=== PATIENT | male | born 1955 | race Caucasian/White ===

== ENCOUNTER 2019-08-04 09:01 | Inpatient (IN) ==
[~2019-08-04 09:01] MED LIST: M.V.I.-12 10 ML, FOLIC ACID 1 MG, MAGNESIUM SULFATE 1 GM, THIAMINE 100 MG in NS 1,000 ML IV ONE
[2019-08-04] MEDS ORDERED: ZOFRAN IV PRN (10:37)
[2019-08-04] MEDS ORDERED: ATIVAN IV PRN (10:50)
[2019-08-04] MEDS ORDERED: APRESOLINE IV PRN (10:51)
--- NOTE | 2019-08-04 10:54 | EKG Report ---
Test Performed on : 08/04/2019 10:45:18 AM Test Reason : Epistaxis,HTN Blood Pressure : / mmHG Vent. Rate : 069 BPM Atrial Rate : 069 BPM P-R Int : 142 ms QRS Dur : 088 ms QT Int : 426 ms P-R-T Axes : 040 017 027 degrees QTc Int : 456 ms Normal sinus rhythm. Nonspecific T wave abnormality Abnormal ECG No previous ECGs available Confirmed by Jame BLANKENSHIP, Irineo Raymond ([id number]) on 08/06/2019 10:25:41 PM
[2019-08-04 11:03] LABS: BASO# 0.03 X1000 (0.0-0.2); BASO% 0.2 % (0.0-0.8); EOS# 0.01 X1000 (0.0-0.7); EOS% 0.1 % (0.0-10.0); HEMATOCRIT 35.5 % (42.0-52.0); HEMOGLOBIN 12.6 g/dL (14.0-18.0); IMM GRAN# 0.04 X1000 (0.0-0.04); IMM GRAN% 0.3 % (0.0-0.5); LYMPH# 1.84 X1000 (1.2-3.4); LYMPH% 13.5 % (20.5-51.1); MCH 32.7 PG (27-31); MCHC 35.5 g/dL (33-37); MCV 92.2 FL (81-99); MONO# 0.97 X1000 (0.11-0.59); MONO% 7.1 % (1.7-9.3); MPV 9.5 FL (7.4-10.4); NEUT# 10.74 X1000 (1.4-6.5); NEUT% 78.8 % (42.2-75.2); PLT 225 X1000 (130-400); RBC 3.85 XMIL (4.7-6.1); RDW 12.8 % (11.5-14.5); WBC 13.63 X1000 (4.8-10.8)
[2019-08-04 11:36] LABS: ESTIMATED GFR > 60
[2019-08-04 11:37] LABS: AGAP 15; BUN 38 mg/dL (8-22); CHLORIDE 87 mmol/L (98-107); COSMO 263; CREATININE 1.1 mg/dL (0.7-1.2); GLUCOSE 111 mg/dL (70-104); POTASSIUM 3.6 mmol/L (3.5-5.1); SODIUM 126 mmol/L (136-145); TCO2 24 mmol/L (25-35)
[2019-08-04] MEDS: NICODERM PATCH TD SCH (11:41)
[2019-08-04] MEDS: TENORMIN PO SCH (14:40)
[2019-08-04] MEDS: NORVASC PO SCH ×2 (14:40→21:25)
--- NOTE | 2019-08-04 16:23 | HISTORY AND PHYSICAL ---
CHIEF COMPLAINT: Of persistent epistaxis and hypertension after being seen at [facility], was a direct admit from their facility to here for further evaluation and treatment. HISTORY OF PRESENTING ILLNESS: This is a 64-year-old male who initially presented to [facility] ER yesterday with epistaxis, had a left rhino packing placed to the left naris. Blood pressure was elevated according to the ER doctor there and they gave some medicine to bring his blood pressure down and discharged him. He was awaiting a ride out in the front lobby and his left naris began to drip blood again so he came into the emergency room again at [facility] and at that time it was felt that he needed further intervention that their facility could not provide so he was transferred here to [facility] [place] for ENT consultation for further evaluation and treatment. PAST MEDICAL HISTORY: Hypertension. PAST SURGICAL HISTORY: Bilateral carpal tunnel repair and a cyst removed from his hand. FAMILY HISTORY: Of cancer. SOCIAL HISTORY: Currently lives alone, smokes a pack of cigarettes a day and has done so for 50+ years. Drinks a half a case of beer and has done so for approximately 5 years and denies any illicit drug use. ALLERGIES AND HOME MEDICATIONS: Are currently being obtained as he just arrived to our facility. LABORATORY DATA: We will obtain a CBC, BMP and a EKG now. REVIEW OF SYSTEMS: He denies any fever, chills, blurred vision, dizziness. He has had left naris nose bleed is currently packed with a rhino packing. Denies any chest pain, coughing, shortness of breath, abdominal pain, constipation, diarrhea, burning or hurting with urination. PHYSICAL EXAMINATION: On arrival his blood pressure is 181/86. HEENT: Normocephalic, atraumatic. He does have packing to his left naris and is still dripping some bright red blood. Pupils are equal, round, reactive to light, accommodation. Extraocular movements are intact. NECK: Normal inspection, normal range of motion. LUNGS: Clear to auscultation bilaterally with equal lung expansion and chest wall movement. HEART: Regular rate and rhythm. No murmurs, rubs, or gallops. ABDOMEN: Soft, nontender, nondistended. Bowel sounds are present x4 quadrants. MUSCULOSKELETAL: He has 5/5 strength x4 extremities. NEUROLOGICAL: The cranial nerves 2-12 are grossly intact. ASSESSMENT: 1. Persistent epistaxis. 2. Hypertension. 3. Tobacco abuse. 4. Ethanol abuse. OUR PLAN: He is being admitted to the medical unit, placed on telemetry, healthy heart diet. We will consult ENT. We will check a CBC, BMP and a EKG now. I am going to place him on nicotine patch 21 mg transdermally for his tobacco abuse. I am also going to place him on Ativan 1 mg IV q.4 hours p.r.n. for any signs and symptoms of alcohol withdrawal and will monitor him for DTs. Will update and confirm home medications restart those as appropriate. I am going to place some hydralazine 10 mg IV q.4 hours p.r.n. for a systolic greater than 190, diastolic greater than 100. Further orders after seen by attending and by consultants intern. Dictated by BALAJI Mohr for Barney Mata MD cc: BALAJI Mohr MD
--- NOTE | 2019-08-04 17:09 | EKG Report ---
Test Performed on : 08/04/2019 4:57:46 PM Test Reason : possible afib Blood Pressure : / mmHG Vent. Rate : 072 BPM Atrial Rate : 072 BPM P-R Int : 164 ms QRS Dur : 082 ms QT Int : 378 ms P-R-T Axes : 059 041 062 degrees QTc Int : 413 ms Normal sinus rhythm. T wave abnormality, consider inferolateral ischemia Abnormal ECG When compared with ECG of 04-AUG-2019 10:45, (Unconfirmed) No significant change was found Patient unable to lean back. Confirmed by Jame BLANKENSHIP, Irnieo Raymond ([id number]) on 08/06/2019 10:25:58 PM
[2019-08-04] MEDS ORDERED: SILVER NITRATE APPLICATOR TOP ONE (18:19)
[2019-08-04] MEDS ORDERED: AFRIN NASAL SPRAY NAS ONE (18:19)
[2019-08-04] MEDS: TYLENOL PO PRN (19:02)
[2019-08-04] MEDS ORDERED: THIAMINE 100 MG in NS 50 ML IV ONE (19:50)
[2019-08-04] MEDS ORDERED: PERCOCET-5 PO PRN (20:18)
[2019-08-04 20:31] LABS: INR 0.92; PROTIME 12.5 Seconds (11.0-16.0)
[2019-08-04 20:32] LABS: PTT 28.7 Seconds (22.3-41.8)
[2019-08-04] MEDS ORDERED: M.V.I.-12 10 ML, FOLIC ACID 1 MG, MAGNESIUM SULFATE 1 GM, THIAMINE 100 MG in NS 1,000 ML IV ONE (21:00)
[2019-08-04] MEDS: LIBRIUM PO SCH (21:25)
[2019-08-04] MEDS: KEFLEX PO SCH (21:25)
--- NOTE | 2019-08-04 21:26 | CONSULTATION ---
DATE OF CONSULTATION: 08/04/2019 CHIEF COMPLAINT: Epistaxis. HISTORY OF PRESENT ILLNESS: This very pleasant 64-year-old gentleman is seen in consultation for ongoing epistaxis. It started about 3 days prior to admission. He presented to his local medical center, where his nose was packed, and for reasons that are not clear to me, it was then unpacked today, and he had return of brisk bleeding from the left side of the nose. He presented to the emergency department here at [place], and the left side of the nose was packed. He has still had intermittent oozing from the left side, some posteriorly in the oropharynx and also a bit out of the right side. Of note, the patient unfortunately is a long-term smoker with a significant history of alcohol abuse, and he has been taking 325 mg of aspirin 3 times a day for a number of years. He has no prior history of epistaxis. PAST MEDICAL HISTORY: Significant for hypertension. PAST SURGICAL HISTORY: Significant for bilateral carpal tunnel. FAMILY HISTORY: Noncontributory. SOCIAL HISTORY: As mentioned above, lives alone. Significant smoking history. Significant alcohol history of about a half a case of beer per day. No illicit drug use. ALLERGIES: None. MEDICATIONS: None. LABORATORY DATA: Significant for hyponatremia and some leukocytosis. Otherwise, relatively noncontributory. REVIEW OF SYSTEMS: CONSTITUTIONAL: Negative for fevers, chills, chest pain. GI: Gastrointestinal distress, cough, abdominal pain, diarrhea. : Painful urination. PHYSICAL EXAMINATION: GENERAL: He is a disheveled but pleasant, chronically unwell-appearing 64-year-old gentleman in no apparent distress. HEENT: The left side of the nose is packed with a Rapid Rhino. There is no active bleeding noted. The right side of the nose has clotted blood. There is no active bleeding noted. The oropharynx shows some dried clotted blood. No active bleeding. Oral cavity shows scattered dentition in poor repair. NECK: He has excellent range of motion of his neck. There is no obvious mass or adenopathy, though he has a significant martini. NEUROLOGIC: Cranial nerves are grossly intact. LUNGS: Clear. HEART: Appears regular to palpation. ASSESSMENT: 1. Epistaxis. 2. Hypertension. 3. Alcoholism. 4. Tobacco abuse. PLAN: This very pleasant 64-year-old gentleman is in for ongoing epistaxis. It seems to have responded to nasal packing and also to some Afrin use by the nursing staff. I elected to place some Surgicel soaked in Afrin in the left side of his nose around his packing, and that seems to have made a big difference for him. I did discuss with him the possibility of bilateral nasal packings to try to prevent any further issues with epistaxis, but at this point he is very resistant to this idea, as he is quite uncomfortable with just his left side packed. At this point, unfortunately, there is really no great option to help treat him. I suspect that if he were to have further bleeding that became more significant, we would need to consider DDAVP or possibly a platelet transfusion. I would like to see him back in the office, and I will arrange for followup next week for packing removal once he has had a chance for his platelet function to return to normal. I did recommend, and I wrote an order, to place him on Keflex empirically while his nose is packed to prevent any further issues with sinusitis. He understands the importance of followup. Certainly he is at high risk for head/neck malignancy that might be causing his underlying bleeding. I will evaluate him in the clinic next week, no sooner than Wednesday or , when his platelet function will hopefully be more normal. He should go home. He should be discharged with a prescription for Keflex for at least a week, and he should be treated intermittently with Afrin spray as needed to help reduce any mild dripping that he may have.
[2019-08-05] MEDS: LIBRIUM PO SCH ×4 (04:58→20:48)
[2019-08-05] MEDS: NS 500 ML IV SCH ×2 (05:07→06:13)
[2019-08-05 07:02] LABS: BASO# 0.03 X1000 (0.0-0.2); BASO% 0.2 % (0.0-0.8); EOS# 0.03 X1000 (0.0-0.7); EOS% 0.2 % (0.0-10.0); HEMATOCRIT 34.2 % (42.0-52.0); HEMOGLOBIN 11.8 g/dL (14.0-18.0); IMM GRAN# 0.03 X1000 (0.0-0.04); IMM GRAN% 0.2 % (0.0-0.5); LYMPH# 1.56 X1000 (1.2-3.4); LYMPH% 11.5 % (20.5-51.1); MCH 31.7 PG (27-31); MCHC 34.5 g/dL (33-37); MCV 91.9 FL (81-99); MONO# 1.06 X1000 (0.11-0.59); MONO% 7.8 % (1.7-9.3); MPV 9.7 FL (7.4-10.4); NEUT# 10.84 X1000 (1.4-6.5); NEUT% 80.1 % (42.2-75.2); PLT 243 X1000 (130-400); RBC 3.72 XMIL (4.7-6.1); RDW 12.8 % (11.5-14.5); WBC 13.55 X1000 (4.8-10.8)
[2019-08-05 07:24] LABS: ESTIMATED GFR > 60
[2019-08-05 07:44] LABS: AGAP 12; BUN 20 mg/dL (8-22); CALCIUM 8.4 mg/dL (8.8-10.2); CHLORIDE 89 mmol/L (98-107); COSMO 261; CREATININE 0.9 mg/dL (0.7-1.2); GLUCOSE 114 mg/dL (70-104); POTASSIUM 3.2 mmol/L (3.5-5.1); SODIUM 128 mmol/L (136-145); TCO2 27 mmol/L (25-35)
[2019-08-05] MEDS: TENORMIN PO SCH (08:14)
[2019-08-05] MEDS: KEFLEX PO SCH ×2 (08:14→20:48)
[2019-08-05] MEDS: NICODERM PATCH TD SCH (08:14)
[2019-08-05] MEDS: TYLENOL PO PRN (08:15)
[2019-08-05] MEDS: NORVASC PO SCH ×2 (08:15→20:48)
[2019-08-05] MEDS ORDERED: SAMSCA PO ONE (08:38)
[2019-08-05] MEDS ORDERED: NS 500 ML IV ONE (09:09)
[2019-08-05 09:37] LABS: INR 0.91; PROTIME 12.4 Seconds (11.0-16.0)
[2019-08-05] MEDS ORDERED: APRESOLINE IV PRN (10:08)
--- NOTE | 2019-08-05 13:58 | PROGRESS NOTE ---
DATE: 08/05/2019 SUBJECTIVE: Patient reports still persisting with epistaxis. In the note from Dr. Kong from ENT mentions that the patient was offered bilateral nasal packing but the patient refused. OBJECTIVE: Vital Signs: Temperature 97.5 degrees, heart rate 72, respiratory rate 18, blood pressure 163/93, O2 saturation 97% on room air. General Examination: This is a chronically ill- appearing, 64-year-old, male lying in bed, in no acute distress, unkempt. HEENT: Patient has a packing in the left naris. No dripping any blood. There is also some coagulated blood in the right nostril. Neck: No JVD noted. No carotid bruits. No lymphadenopathy. Cardiovascular: S1, S2 heard. No murmurs, gallops, or rubs. Regular rate and rhythm. Respiratory: Clear bilaterally to auscultation. No work of breathing or using accessory muscles. Abdomen: Soft, nontender to palpation. Bowel sounds present. No organomegaly. Extremities: No clubbing, cyanosis, or edema. Peripheral pulses present in both legs. Neurological: Patient alert and oriented x3. Some hand tremor noted. LABORATORY DATA: Reviewed. ASSESSMENT AND PLAN: 1. Persistent epistaxis. At this point, I think the fact that he is taking aspirin is making him more prone to develop epistaxis. In that regard, we are going to transfuse [address] Kong from ENT has offered packing of both nostrils but he refused. We will see if this transfusion helps to stop the bleeding, otherwise we will need to call ENT again. 2. Hypertension. Blood pressure has been elevated. We have started this patient on atenolol which is his home medication and also on amlodipine, but blood pressure is still elevated. We will continue also with hydralazine p.r.n. 3. Ethanol abuse. Patient has been started on Librium. We will continue to monitor. 4. Tobacco abuse. Patient advised to quit smoking. 5. Disposition. We will continue to monitor this patient closely here in the hospital. If bleeding stops he can be discharged tomorrow. cc: Barney Mata MD MTDEagle
[2019-08-05] MEDS ORDERED: THIAMINE 100 MG in NS 50 ML IV SCH (20:00)
[2019-08-05] MEDS ORDERED: M.V.I.-12 10 ML, FOLIC ACID 1 MG, MAGNESIUM SULFATE 1 GM, THIAMINE 100 MG in NS 1,000 ML IV SCH (21:00)
[2019-08-06] MEDS: NS 500 ML IV SCH (04:50)
[2019-08-06] MEDS: LIBRIUM PO SCH ×2 (04:51→11:13)
[2019-08-06 07:42] LABS: BASO# 0.04 X1000 (0.0-0.2); BASO% 0.3 % (0.0-0.8); EOS# 0.03 X1000 (0.0-0.7); EOS% 0.3 % (0.0-10.0); HEMATOCRIT 30.9 % (42.0-52.0); HEMOGLOBIN 10.3 g/dL (14.0-18.0); IMM GRAN# 0.04 X1000 (0.0-0.04); IMM GRAN% 0.3 % (0.0-0.5); LYMPH# 1.71 X1000 (1.2-3.4); LYMPH% 14.6 % (20.5-51.1); MCH 31.6 PG (27-31); MCHC 33.3 g/dL (33-37); MCV 94.8 FL (81-99); MONO# 1.32 X1000 (0.11-0.59); MONO% 11.2 % (1.7-9.3); MPV 10.2 FL (7.4-10.4); NEUT% 73.3 % (42.2-75.2); PLT 266 X1000 (130-400); RBC 3.26 XMIL (4.7-6.1); RDW 12.7 % (11.5-14.5); WBC 11.74 X1000 (4.8-10.8)
[2019-08-06 08:13] LABS: AGAP 10; BUN 13 mg/dL (8-22); CALCIUM 8.3 mg/dL (8.8-10.2); CHLORIDE 96 mmol/L (98-107); COSMO 273; CREATININE 0.9 mg/dL (0.7-1.2); ESTIMATED GFR > 60; GLUCOSE 119 mg/dL (70-104); PHOSPHORUS 2.3 mg/dL (2.7-4.5); SODIUM 136 mmol/L (136-145); TCO2 30 mmol/L (25-35)
[2019-08-06 08:44] VITALS: BP 135/71
[2019-08-06] MEDS ORDERED: KLOR-CON PO ONE (08:59)
[2019-08-06] MEDS ORDERED: SODIUM PHOSPHATE 35 MMOL in NS 250 ML IV ONE (09:30)
[2019-08-06] MEDS ORDERED: NEUTRA-PHOS PO ONE (10:01)
[2019-08-06] MEDS: TENORMIN PO SCH (11:11)
[2019-08-06] MEDS: NORVASC PO SCH (11:13)
[2019-08-06] MEDS: NICODERM PATCH TD SCH (11:13)
[2019-08-06] MEDS: KEFLEX PO SCH (11:13)
--- NOTE | 2019-08-06 18:54 | DISCHARGE SUMMARY ---
ADMISSION DATE: 08/04/2019 DISCHARGE DATE: 08/06/2019 DISCHARGE DIAGNOSES: 1. Persistent epistaxis, resolved. 2. Hypertension. 3. Tobacco abuse. 4. Ethanol abuse. CONSULTATION: Suman Kong MD, from ENT. HOSPITAL COURSE: This is a 64-year-old male, who initially presented to [facility] for epistaxis. The patient had a left rhino packing placed in the left nares, but because the epistaxis continues to happen, they decided to transfer this patient to [facility] where we do have ENT coverage. He has been evaluated by Dr. Kong and he offered the patient to proceed with packing of the other nostril, but the patient refused. The patient also was noted to take aspirin so this suggests that he may have also some platelet dysfunction that could be playing a role in this persistent epistaxis. In that regard, we decided to transfuse 1 unit of platelets. The next day the patient's epistaxis resolved. He was also advised to quit drinking alcohol and smoking tobacco. Patient acknowledged understanding. The patient is going to be seen by Dr. Harkins in the office within a week as he instructed the patient. DISCHARGE PHYSICAL EXAMINATION: Vital signs: Temperature 97.6 degrees, heart rate 79, respiratory rate 18, blood pressure 135/71, O2 saturation 96% on room air. General Examination: This is a 64-year-old male, lying in bed, in no acute distress. Cardiovascular exam: S1, S2 heard. No murmurs, gallops, or rubs. Regular rate and rhythm. Respiratory exam: Clear bilaterally to auscultation. No work of breathing or using accessory muscles. Abdomen: Soft, nontender to palpation. Bowel sounds present. No organomegaly. Extremities: No clubbing, cyanosis, or edema. Peripheral pulses present in all legs. Neurological: Patient alert and oriented x3. Moves all 4 extremities. DISCHARGE DISPOSITION: 1. Home to self-care. 2. Follow up with Dr. Kong in the office within a week. DISCHARGE MEDICATIONS: 1. Cephalexin 500 mg 1 tablet p.o. b.i.d. for 5 days. 2. Atenolol 100 mg 1 tablet p.o. daily. 3. Norvasc 5 mg 1 tablet p.o. b.i.d. cc: Barney Mata MD
== END 2019-08-06 12:01 | disposition home or self-care (01) | DRG 151 ==
LOC: DIRADM 09:01 → SUATTDRO 09:01 → EDIPHOLD 10:13 → 4N 10:58
PROVIDERS: ATTEND Internal Medicine